=== PATIENT | female | born 1990 ===

== ENCOUNTER 2022-05-15 16:54 | Inpatient (IN) | payer MEDICAID, OTHER ==
[2022-05-15] MEDS ORDERED: OLANZapine 5 MG TAB PO PRN (17:17)
[2022-05-15] MEDS ORDERED: MAG HYDROX/AL HYDROX/SIMETH 30 ML CUP PO PRN (17:17)
[2022-05-15] MEDS ORDERED: MAGNESIUM HYDROXIDE 2,400 MG/10 ML CUP PO PRN (17:17)
[2022-05-15] MEDS ORDERED: hydrOXYzine pamoate 25 MG CAP PO PRN ×2 (17:17→17:22)
[2022-05-15] MEDS ORDERED: hydrOXYzine HCL 50 MG/ML 1 ML VIAL IM PRN (17:17)
[2022-05-15] MEDS ORDERED: OLANZapine 10 MG VIAL IM PRN (17:17)
[2022-05-16 00:38] VITALS: RESP 16
--- NOTE | 2022-05-16 06:21 | P.MDCNMH ---
History of Present Illness H&P Date: 05/16/22 Chief Complaint: Medical evaluation 31-year-old female with history of depression and anxiety Patient comes into the hospital for evaluation due to depressed emotions and suicidal thoughts. She was supposed to be on Effexor however she started long time ago and currently not taking any medications She denies any medical concerns at this time denies any fevers chills nausea vomiting chest pain trouble breathing upper respiratory infection symptoms diarrhea or urinary changes denies any GI bleeding. Review of Systems Pertinent positives as noted in HPI. All other systems were reviewed and are negative Past Medical History History of Any Multi-Drug Resistant Organisms: None Reported Smoking Status: Never smoker - Past Family History Family Additional Family Medical History / Comment(s): Denies any family history of cancer or heart disease Medications and Allergies Allergies Allergy/AdvReac Type Severity Reaction Status Date / Time No Known Allergies Allergy Verified 05/15/22 17:15 Physical Exam Vitals: Vital Signs Temp Pulse Resp BP Pulse Ox 05/16/22 00:11 97.5 F L 93 16 131/85 98 Intake and Output 05/15/22 05/15/22 05/16/22 14:59 22:59 06:59 Other: Weight 109 kg 109 kg Constitutional: No acute distress, conversant, pleasant Eyes: Anicteric sclerae, moist conjunctiva, Pupils equal round reactive to light ENMT: NC/AT Oropharynx clear, no erythema, or exudates Neck: Supple, no masses, or JVD No carotid bruits No thyromegaly Lungs: Clear to auscultation Clear to percussion Normal respiratory effort, no accessory muscle use Cardiovascular: Heart regular in rate and rhythm, No murmurs, gallops, or rubs No peripheral edema Abdominal: Soft Nontender, no guarding, rebound or rigidity Abdomen moving with respiration Normoactive bowel sounds No hepatomegaly, No splenomegaly No palpable mass No abdominal wall hernia noted Skin: Normal temperature, tone, texture, turgor No induration No subcutaneous nodules No rash, lesions No ulcers Extremities: No digital cyanosis No clubbing Pedal pulses intact and symmetrical Radial pulses intact and symmetrical No calf tenderness Psychiatric: Alert and oriented to person, place and time Appropriate affect fair judgement Neuro Muscles Strength 5/5 in all 4 extremities Sensation to light touch grossly present throughout Cranial nerves II-XII grossly intact No focal sensory deficits Lymphatics: no palpable cervical or supraclavicular , or inguinal lymph nodes Cranial Nerve Examination - Cranial Nerves Cranial Nerve II- Optic: Intact Cranial Nerve III- Oculomotor: Intact Cranial Nerve IV- Trochlear: Intact Cranial Nerve V- Trigeminal: Intact Cranial Nerve - Abducens: Intact Cranial Nerve VII- Facial: Intact Cranial Nerve VIII- Auditory: Intact Cranial Nerve IX- Glossopharyngeal: Intact Cranial Nerve X- Vagus: Intact Cranial Nerve XI- Accessory: Intact Cranial Nerve XII- Hypoglossal: Intact Assessment and Plan Assessment: Depression and suicidal ideation Management per psychiatry team Morbid obesity Counseled regarding lifestyle modification and weight loss Follow-up labs Currently medically stable Thank you for allowing us to participate in the care of this patient. We will follow peripherally. Do not hesitate to contact us with questions. Someone can be reached from the [facility] hospitalist group at all hours of the day at [phone].
[2022-05-16 07:33] LABS: ALT 24 U/L (4-34); AST 23 U/L (14-36); Albumin 4.3 g/dL (3.5-5.0); Alkaline Phosphatase 100 U/L (38-126); Bilirubin, Delta 0.1 mg/dL (0.0-0.2); Bilirubin,Unconjugated 0.7 mg/dL (0.0-1.1); Total Bilirubin 0.8 mg/dL (0.2-1.3); Total Protein 7.1 g/dL (6.3-8.2)
[2022-05-16 12:03] LABS: Chol/HDL Ratio 3.87 Ratio; LDL Cholesterol,Calculated 121.2 mg/dL (0.0-131.0); VLDL Calculation 19.04 mg/dL (5.00-40.00)
[2022-05-16] MEDS: ACETAMINOPHEN TAB 325 MG TAB PO PRN (17:58)
--- NOTE | 2022-05-16 19:26 | P.HP ---
Psychiatric H&P - . H&P Date: 05/16/22 History & Physical: IDENTIFYING DATA: Patient is a 31 year old female who was admitted due to depression with suicidal ideation to crash her car. HPI: Patient presented to the hospital due to worsening depression with suicidal ideation to crash her car. She reports depressed mood for the past 3-4 years, anhedonia, poor sleep, low energy, low concentration, variable appetite. She reports suicidal thoughts with plan to crash her car, but denies intent. She reports chronic anxiety with global worries, feeling restless, keyed up/on edge, difficulty falling asleep and staying asleep, irritable, muscle tension. She endorses panic attacks about 2 times per week. She reports several life stressors including telling her he doesn't love her anymore, worries about her relapsing. At this time patient denies any auditory or visual hallucinations. Patient denies any flight of ideas and increased in goal directed behavior. Patient denies drug, alcohol or tobacco use. PAST PSYCHIATRIC HISTORY: Patient states that she has a history of anxiety and depression. Patient reports she has tried Effexor XR. Patient denies any previous psychiatric hospitalizations. Patient denies any psychiatric outpatient follow-up. Patient denies any history of suicide attempts in the past. PMH: Obesity ALLERGIES: as per EMR CHEMICAL DEPENDENCY HISTORY: as per HPI FAMILY PSYCHIATRIC/SUBSTANCE USE HISTORY: Maternal grandparents with unknown mental health problems SOCIAL HISTORY: Patient was born and raised in [place]. for 6 years. has been sober for 1 year and she worries about him relapsing. Has 3 children (8, 7, 5 years old). Lives with and children. Unemployed MENTAL STATUS EXAM: General Appearance: Patient appears to be stated age, hair dyed purple, obese, hair messy, fair hygiene and grooming. Behavior: Patient is seated without any agitated behavior. Speech: Patient's speech is fluent and non-pressured. Mood/Affect: Patient reports their mood is depressed, affect is congruent and constricted. Suicidality/Homicidality: Patient denies having any homicidal ideation intent or plan. She endorses suicidal ideations with plan to crash her car but denies intent. Perceptions: Patient denies any visual hallucinations and denies any auditory hallucinations Though content/process: There is no evidence of any delusional thought content and thought process is linear and goal-directed. Memory and concentration: AOX3, grossly intact for the purposes of this session. Can spell "WORLD" backwards Judgment and insight: average STRENGTHS/WEAKNESSES: strength is that patient is resilient. Weakness is that patient has worries about everybody else. INTELLECT: Average IMPRESSIONS: Major depressive disorder, recurrent severe Generalized anxiety disorder, with panic attacks PLAN: -Patient is admitted under involuntary status to [facility] for stabilization of psychiatric symptoms and safety. Patient has signed adult voluntary form and medication consent and is placed in patient's chart. -Medications: Start Zoloft 50 mg QHS for depression/anxiety. Start Trazodone 50 mg QHS PRN for sleep. -Ativan and Haldol PRN for agitation/aggression -Patient was informed of the risks, benefits and side effects of the medication and patient verbally consented to taking the medications. Patient signed med consent form and was placed in chart. -Internal Medicine consult to perform medical evaluation and physical. -NRT - not needed, does not smoke -SW on board for discharge planning. Encourage patient to participate in groups to work on coping skills. Allergies Allergy/AdvReac Type Severity Reaction Status Date / Time No Known Allergies Allergy Verified 05/15/22 17:15 Vital Signs Temp 97.5 F L 05/16/22 00:11 Pulse 93 05/16/22 00:11 Resp 16 05/16/22 00:11 BP 131/85 05/16/22 00:11 Pulse Ox 98 05/16/22 00:11 FiO2 Intake & Output 05/15/22 05/16/22 05/16/22 18:59 06:59 18:59 Weight 109 kg 109 kg Laboratory Last Values Estimated Ave Glu mg/dL 105 05/16/22 06:59 Hemoglobin A1c 5.3 % (0.0-6.0) 05/16/22 06:59 Total Bilirubin 0.8 mg/dL (0.2-1.3) 05/16/22 06:59 Conjugated Bilirubin 0.0 mg/dL (0.0-0.3) 05/16/22 06:59 Unconjugated Bilirubin 0.7 mg/dL (0.0-1.1) 05/16/22 06:59 Delta Bilirubin 0.1 mg/dL (0.0-0.2) 05/16/22 06:59 AST 23 U/L (14-36) 05/16/22 06:59 ALT 24 U/L (4-34) 05/16/22 06:59 Alkaline Phosphatase 100 U/L (38-126) 05/16/22 06:59 Total Protein 7.1 g/dL (6.3-8.2) 05/16/22 06:59 Albumin 4.3 g/dL (3.5-5.0) 05/16/22 06:59 Triglycerides 95.20 mg/dL (0.00-149.00) 05/16/22 06:59 Cholesterol 189.00 mg/dL (0.00-200.00) 05/16/22 06:59 LDL Cholesterol, Calc 121.2 mg/dL (0.0-131.0) 05/16/22 06:59 VLDL Cholesterol, Calc 19.04 mg/dL (5.00-40.00) 05/16/22 06:59 HDL Cholesterol 48.80 mg/dL (40.00-60.00) 05/16/22 06:59 Cholesterol/HDL Ratio 3.87 Ratio 05/16/22 06:59 TSH 2.990 mIU/L (0.465-4.680) 05/16/22 06:59 05/16/22 13:04 05/16/22 19:04
[2022-05-16] MEDS: SERTRALINE 50 MG TAB PO SCH (20:29)
[2022-05-16] MEDS: traZODone HCL 50 MG TAB PO PRN (20:58)
[2022-05-17] MEDS ORDERED: ONDANSETRON 4 MG TAB PO PRN (16:21)
--- NOTE | 2022-05-17 16:32 | P.PN ---
Progress Note - Text Progress Note Date: 05/17/22 Interval history: Patient was seen attending group and was directable and agreeable to speak with song writer. She reports some nausea since starting the Zoloft last night. She continues to endorse depressed mood and anxiety, but reports she is starting to feel a little but better as compared to yesterday. She did not sleep well last night; she required a PRN Trazodone 50 mg x 1 last night for sleep. At this time patient denies any suicidal or homicidal ideation, intent or plan. Denies any auditory or visual hallucinations. Patient has been compliant with meds. Mental status exam: General Appearance: Patient appears to be stated age, hair dyed purple, obese, hair messy, fair hygiene and grooming. Behavior: Patient is cooperative without any agitated behavior. Speech: Patient's speech is fluent and non-pressured. Mood/Affect: Patient reports her mood is depressed/anxious but starting to feel a little bit better, affect is congruent and constricted. Suicidality/Homicidality: Patient denies having any homicidal ideation intent or plan. She denies suicidal ideation, plan or intent. Perceptions: Patient denies any visual hallucinations and denies any auditory hallucinations Though content/process: There is no evidence of any delusional thought content and thought process is linear and goal-directed. Memory and concentration: AOX3, grossly intact for the purposes of this session. Judgment and insight: Improving mildly Assessment/Plan: Continue with current diagnosis. Patient continues to meet criteria for inpatient psychiatric admission for symptom stabilization and safety. Medications: Continue Zoloft 50 mg daily for depression/anxiety. Continue Trazodone 50 mg QHS PRN for sleep. Start Zofran 4 mg Q8H PRN for nausea. Monitor for medication compliance and for any psychotropic medication side effects. Will continue to monitor ongoing response to treatment. Encouraged participation in milieu.
[2022-05-17] MEDS: traZODone HCL 50 MG TAB PO PRN (21:06)
[2022-05-17] MEDS: SERTRALINE 50 MG TAB PO SCH (21:06)
[2022-05-18] MEDS: ACETAMINOPHEN TAB 325 MG TAB PO PRN (09:25)
--- NOTE | 2022-05-18 15:58 | P.PN ---
Progress Note - Text Progress Note Date: 05/18/22 Interval history: Patient was seen attending group and was directable and agreeable to speak with automatic typewriter inspector. She reports improved mood today, reports she slept well last night with a PRN Trazodone 50 mg x 1 last night for sleep. She is tolerating the Zoloft better today, denies nausea today. At this time, patient denies any suicidal or homicidal ideation, intent or plan. Denies any auditory or visual hallucinations. Patient has been compliant with meds and denies medication side effects. Mental status exam: General Appearance: Patient appears to be stated age, hair dyed purple, obese, fair hygiene and grooming. Behavior: Patient is cooperative without any agitated behavior. Speech: Patient's speech is fluent and non-pressured. Mood/Affect: Patient reports her mood is better, affect is congruent. Suicidality/Homicidality: Patient denies having any homicidal ideation intent or plan. She denies suicidal ideation, plan or intent. Perceptions: Patient denies any visual hallucinations and denies any auditory hallucinations Though content/process: There is no evidence of any delusional thought content and thought process is linear and goal-directed. Memory and concentration: AOX3, grossly intact for the purposes of this session. Judgment and insight: Improving mildly Assessment/Plan: Continue with current diagnosis. Patient continues to meet criteria for inpatient psychiatric admission for symptom stabilization and safety. Medications: Continue Zoloft 50 mg daily for depression/anxiety. Continue Trazodone 50 mg QHS PRN for sleep. Monitor for medication compliance and for any psychotropic medication side effects. Will continue to monitor ongoing response to treatment. Encouraged participation in milieu.
[2022-05-18] MEDS: SERTRALINE 50 MG TAB PO SCH (20:39)
[2022-05-18] MEDS: traZODone HCL 50 MG TAB PO PRN (23:10)
[2022-05-19 06:43] VITALS: BP 112/59; PULSE 73; TEMP 97.2
--- NOTE | 2022-05-19 12:49 | P.DS ---
Providers Date of admission: 05/15/22 23:25 Expected date of discharge: 05/19/22 Attending physician: Damián Larose MD Consults: 05/15/22 17:17 Consult Physician Routine Consulting Provider: Terrie Pickard Consult Reason/Comments: H & P medical management Do you want consulting provider notified?: Yes Primary care physician: Stated None Hospital Course: Patient had psychiatric history and physical done by a diagnosis of major depression was made and was started on Zoloft and trazodone. She started to feel better within 2 days of her new medications. When she was seen by me today she said she was feeling depressed because of her 's drug addiction and behavior related to that and her impending divorce which made her feel "depressed". She was counseled about all these things as noted in the progress note written today, she was counseled about the need for therapy to learn better coping skills which the medications do not do. And she had agreed to discontinue her medications and seek outpatient therapy. 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 Health Concerns: None Pertinent Studies: Not applicable Procedures: Not applicable Patient Condition at Discharge: Stable Plan - Discharge Summary Follow up Appointment(s)/Referral(s): Renewal,Counseling [Other] - 05/20/22 11:00 am Activity/Diet/Wound Care/Special Instructions: Avoid the use of street drugs and alcohol. Take all prescriptions as prescribed. When you are in need of refills on your medications, please contact your medical provider and/or outpatient psychiatrist to have this done. Please go to scheduled outpatient appointment for aftercare treatment. If symptoms return or become worse, call the crisis line at and/or go to the nearest emergency room for evaluation. Discharge Disposition: HOME SELF-CARE Care Plan Goals (MU): Patient was advised to see a therapist to learn better coping skills
== END 2022-05-19 14:55 | disposition home or self-care (01) | DRG 882 ==
LOC: 3MHU 23:25
PROVIDERS: ADMIT Psychiatry & Neurology Psychiatry; ATTEND Psychiatry & Neurology Psychiatry
DX: F43.25 Adjustment disorder with mixed disturbance of emotions and conduct (principal); R45.851 Suicidal ideations; F41.0 Panic disorder [episodic paroxysmal anxiety]; F41.1 Generalized anxiety disorder
CPT/HCPCS: 80061; 80076; 83036; 84443